=== PATIENT | female | born 1970 | race African-American/Black ===

== ENCOUNTER 2023-04-15 16:27 | Emergency (ER) | payer BC ==
[~2023-04-15] VITALS: Ht 149.9 cm; Wt 75.0 kg
[~2023-04-15 16:27] MED LIST: NORCO 325 MG-51 TAB PO
[2023-04-15 16:35] VITALS: TEMP 98.6
[2023-04-15] MEDS ORDERED: ULTRAM 50MG TAB50 MG PO (19:26)
[2023-04-15 19:40] VITALS: BP 122/65; PULSE 100
[2023-04-16] MEDS ORDERED: GLUCOPHAGE500 MG/TAB PO (03:15)
[2023-04-16] MEDS ORDERED: VYVANSE60 MG PO (03:15)
[2023-04-16] MEDS ORDERED: LUNESTA3 MG PO (03:15)
[2023-04-16] MEDS ORDERED: PROTONIX 40MG T40 MG PO (03:15)
[2023-04-16] MEDS ORDERED: LYRICA 75MG CAP75 MG PO (03:16)
[2023-04-16] MEDS ORDERED: REGLAN 10MG10 MG/TAB PO (03:39)
[2023-04-16] MEDS ORDERED: PEPCID 20MG TAB20 MG PO (03:40)
[2023-04-16] MEDS ORDERED: METROCREAM CREA45 GM TP (05:02)
[2023-04-16] MEDS ORDERED: TOPROL XL 25MG25 MG PO (11:59)
--- NOTE | 2023-04-16 15:31 | NUR ---
SW met with pt for intake. Pt reported living in [place] but visiting until New Year to help with grandchild. Pt reported NOK is son Vikash Tim [phone], Pt denied having DPOA and accepted paperwork to review. Pt reported PCP is in [place] and that is where she fills her medication. Pt reported living on 3rd floor and having difficulties at time but denied any DME use. Pt denied o2 use. Pt plans to d/c home with son.
== END 2023-04-15 19:41 | disposition home or self-care (01) ==
LOC: COL.ER 16:27
DX: M25.532 Pain in left wrist (principal); I16.0 Hypertensive urgency; M54.12 Radiculopathy, cervical region
CPT/HCPCS: J0360; J1200; J2765; J3010; J7030

== ENCOUNTER 2023-04-15 23:12 | Observation (INO) | payer BC ==
[~2023-04-15] VITALS: Ht 149.9 cm; Wt 86.6 kg
[~2023-04-15 23:12] MED LIST changes: +ULTRAM 50MG TAB50 MG PO
[2023-04-16 00:43] LABS: INR 0.9 (0.8-3.0); PROTHROMBIN TIME 10.2 SECONDS (9.7-12.8)
[2023-04-16 00:45] LABS: BASO # 0.1 K/mm3 (0.0-0.2); BASO % 0.4 % (0.0-2.0); EOS # 0.1 K/mm3 (0.0-0.7); EOS % 0.3 % (0.0-4.0); GRAN # 12.8 K/mm3 (1.4-6.5); GRAN % 71.8 % (42.2-75.2); HEMATOCRIT 39.8 % (37.0-47.0); LYMPH # 3.7 K/mm3 (1.2-3.4); LYMPH % 20.7 % (20.0-51.0); MEAN CELL VOLUME 76 fl (80.0-100.0); MEAN CORPUSCULAR HEMOGLOBIN 25 pg (27-31); MEAN CORPUSCULAR HGB CONC 33 g/dl (33.0-37.0); MEAN PLATELET VOLUME 10.1 fl (7.4-10.4); MONO % 5.4 % (1.7-9.3); PLATELET COUNT 297 K/mm3 (130-400); RED BLOOD COUNT 5.24 M/mm3 (4.10-5.30); REDCELL DISTRIBUTION WIDTH-CV 17.1 % (11.5-14.5)
[2023-04-16 00:46] LABS: PARTIAL THROMBOPLASTIN TIME 28.8 SECONDS (26.0-37.0)
[2023-04-16 00:46] LABS: COLLECTION METHOD CLEAN CATCH
[2023-04-16 00:58] LABS: ALBUMIN 3.7 gm/dL (3.5-5.0); BILIRUBIN,TOTAL 0.5 mg/dL (0.2-1.2); CREATININE, serum 0.95 mg/dL (0.57-1.11); POTASSIUM 3.5 mmol/L (3.5-4.5); TOTAL PROTEIN 7.3 gm/dL (6.2-8.1)
[2023-04-16 01:04] LABS: URINE APPEARANCE Clear (CLEAR/HAZY); URINE BLOOD Negative (NEGATIVE); URINE COLOR Yellow (YELLOW); URINE GLUCOSE Negative (NEGATIVE); URINE KETONE Negative (NEGATIVE); URINE NITRATE Negative (NEGATIVE); URINE PROTEIN(semi-quant) Negative (NEGATIVE); URINE UROBILINOGEN 0.2 E.U/dL (0.2-1.0)
[2023-04-16 01:04] LABS: TROPONIN-I 0.013 ng/mL (0.00-0.033)
[2023-04-16 01:07] LABS: SQUAMOUS EPITHELIAL 0-2 /hpf (0-10); URINE BACTERIA Rare /hpf (NONE SEEN); URINE CALCIUM OXALATE CRYSTAL Present (NOT PRESENT); URINE RBC None Seen /hpf (0-2)
[2023-04-16] MEDS ORDERED: PROTONIX 40MG T40 MG PO (03:15)
[2023-04-16] MEDS ORDERED: LUNESTA3 MG PO (03:15)
[2023-04-16] MEDS ORDERED: VYVANSE60 MG PO (03:15)
[2023-04-16] MEDS ORDERED: GLUCOPHAGE500 MG/TAB PO (03:15)
[2023-04-16] MEDS ORDERED: LYRICA 75MG CAP75 MG PO (03:16)
[2023-04-16] MEDS ORDERED: REGLAN 10MG10 MG/TAB PO (03:39)
[2023-04-16] MEDS ORDERED: PEPCID 20MG TAB20 MG PO (03:40)
[2023-04-16] MEDS ORDERED: METROCREAM CREA45 GM TP (05:02)
[2023-04-16 05:29] VITALS: BP 194/83; PULSE 110; TEMP 98.2
--- NOTE | 2023-04-16 07:00 | NUR ---
PT RESTING IN BED. PT IS ON RA. PT IS ST ON TELE. PT IS AXOX3. PT HAS IVF RUNNING. PT HAS CALL LIGHT AND IS INSTRUCTED TO CALL WITH ALL NEEDS. 0800-PTS BP ELEVATED AND COMPLAINS OF HEADACHE. PRN HYDRALAZINE AND TRAMADOL GIVEN.
[2023-04-16 07:20] VITALS: BP 181/91; PULSE 103; TEMP 98
--- NOTE | 2023-04-16 07:44 | NUR ---
Admission assessment completed- see docuemntation. Pt is alert and oriented. She denies pain or discomfort at this time. Pt oriented to the room and hospital policies. Providers orders initiated. LR currently running at 100 ml/hr. AM medications administered as ordered. Pt wears a CPAP at night when home. Respiratory therapy contacted and has set this up for pt. No other needs at this time. Call light left within reach.
[2023-04-16 09:14] VITALS: BP 174/74
--- NOTE | 2023-04-16 11:03 | NUR ---
D: Patient accepted Community Relations Coordinator visit when offered. Patient desires prayer. Patient is from [place]. She is here to help care for her Grandson as her Son is stationed at [employer]. A: Patient is feeling better today than yesterday; although still concerned about an infection. Patient is concerned for her family. P: Community Relations Coordinator prayed for Patient's family and for her healing. Community Relations Coordinator assisted Patient by informing her about the menu and how to call for changes; the TV schedule; and by providing a New Testament. Community Relations Coordinator relayed Patient's request for a toothbrush and toothpaste to the RN.
[2023-04-16 11:22] VITALS: BP 140/80; PULSE 99; TEMP 98.5
[2023-04-16] MEDS ORDERED: TOPROL XL 25MG25 MG PO (11:59)
--- NOTE | 2023-04-16 12:49 | NUR ---
1240-IV AND TELE DC'D. DISCHARGE INSTRUCTIONS DISCUSSED WITH PT. CLARIFIED WITH Kasie PINEDA ABOUT STOPPING LUNESTA. STATED DUE TO PTS SLEEP APNEA IT IS NOT RECCOMMENDED. PT EDUCATED. ALL QUESTIONS ANSWERED. PT GETTING DRESSED FOR DISCHARGE. 1250-PT WHEELED OUT FOR DISCHARGE. ACCOMPAINED BY FAMILY.
== END 2023-04-16 12:52 | disposition home or self-care (01) ==
LOC: COL.ER 23:12 → MEDICAL 04-16 03:21
PROVIDERS: Emergency Medicine; ADMIT Internal Medicine
DX: I16.0 Hypertensive urgency (principal); R65.10 Systemic inflammatory response syndrome (SIRS) of non-infectious origin without acute organ dysfunction; E11.69 Type 2 diabetes mellitus with other specified complication; G47.33 Obstructive sleep apnea (adult) (pediatric); Z87.442 Personal history of urinary calculi; M25.432 Effusion, left wrist; M25.532 Pain in left wrist; Z79.84 Long term (current) use of oral hypoglycemic drugs
CPT/HCPCS: G0378; J0360; J0780; J1200; J2543; J3370; J7040; J7050; J7120; Q9967

== ENCOUNTER 2023-05-17 23:41 | Emergency (ER) | payer SELFPAY ==
[~2023-05-17] VITALS: Ht 149.9 cm; Wt 72.7 kg
[~2023-05-17 23:41] MED LIST changes: +GLUCOPHAGE500 MG/TAB PO; +LUNESTA3 MG PO; +LYRICA 75MG CAP75 MG PO; +METROCREAM CREA45 GM TP; +PEPCID 20MG TAB20 MG PO; +PROTONIX 40MG T40 MG PO; +REGLAN 10MG10 MG/TAB PO; +TOPROL XL 25MG25 MG PO; +VYVANSE60 MG PO
[2023-05-17 23:48] VITALS: TEMP 99.3
[2023-05-18 00:27] LABS: BASO % 0.3 % (0.0-2.0); EOS # 0.2 K/mm3 (0.0-0.7); EOS % 1.1 % (0.0-4.0); GRAN # 8.5 K/mm3 (1.4-6.5); GRAN % 60.1 % (42.2-75.2); HEMATOCRIT 43.5 % (37.0-47.0); HEMOGLOBIN 14.9 g/dl (12.5-16.0); LYMPH # 4.7 K/mm3 (1.2-3.4); LYMPH % 32.9 % (20.0-51.0); MEAN CELL VOLUME 74 fl (80.0-100.0); MEAN CORPUSCULAR HEMOGLOBIN 25 pg (27-31); MEAN CORPUSCULAR HGB CONC 34 g/dl (33.0-37.0); MEAN PLATELET VOLUME 9.8 fl (7.4-10.4); MONO # 0.7 K/mm3 (0.1-0.6); PLATELET COUNT 312 K/mm3 (130-400); RED BLOOD COUNT 5.89 M/mm3 (4.10-5.30); REDCELL DISTRIBUTION WIDTH-CV 16.6 % (11.5-14.5)
[2023-05-18 00:31] LABS: PROTHROMBIN TIME 11.2 SECONDS (9.7-12.8)
[2023-05-18 00:34] LABS: PARTIAL THROMBOPLASTIN TIME 31.5 SECONDS (26.0-37.0)
[2023-05-18 00:58] LABS: ALANINE AMINOTRANSFERASE 31 U/L (0-55); ALKALINE PHOSPHATASE 69 U/L (40-150); ANION GAP 15 mmol/L (7-16); AST,SGOT 20 U/L (5-34); BLOOD UREA NITROGEN 17 mg/dL (10-20); CALCIUM 10.6 mg/dL (8.4-10.2); CARBON DIOXIDE 20 mmol/L (22-29); CHLORIDE 106 mmol/L (98-107); CREATININE, serum 1.09 mg/dL (0.57-1.11); GLUCOSE 126 mg/dL (70-99); POTASSIUM 3.6 mmol/L (3.5-4.5); SODIUM 141 mmol/L (136-145); TOTAL PROTEIN 7.8 gm/dL (6.2-8.1)
[2023-05-18 01:06] LABS: TROPONIN-I < 0.010 ng/mL (0.00-0.033)
[2023-05-18 01:17] LABS: BILIRUBIN,TOTAL 0.4 mg/dL (0.2-1.2)
[2023-05-18 02:48] LABS: COLLECTION METHOD CLEAN CATCH
[2023-05-18 03:00] VITALS: O2SAT 97
[2023-05-18 03:00] LABS: MUCOUS Present (NOT PRESENT); PH 5.5 (5.0-8.5); SQUAMOUS EPITHELIAL 0-2 /hpf (0-10); URINE APPEARANCE Clear (CLEAR/HAZY); URINE BACTERIA Rare /hpf (NONE SEEN); URINE BLOOD Negative (NEGATIVE); URINE COLOR Yellow (YELLOW); URINE GLUCOSE Negative (NEGATIVE); URINE KETONE Negative (NEGATIVE); URINE NITRATE Negative (NEGATIVE); URINE PROTEIN(semi-quant) Negative (NEGATIVE); URINE RBC 0-2 /hpf (0-2); URINE UROBILINOGEN 0.2 E.U/dL (0.2-1.0)
[2023-05-18 04:33] VITALS: BP 152/105; PULSE 84
== END 2023-05-18 04:44 | disposition home or self-care (01) ==
LOC: COL.ER 23:41
PROVIDERS: Emergency Medicine
DX: U07.1 COVID-19 (principal); R53.1 Weakness; R09.81 Nasal congestion; R07.2 Precordial pain
CPT/HCPCS: J1885; J7030

== ENCOUNTER 2024-01-24 18:02 | Emergency (ER) | payer OTHER ==
[~2024-01-24] VITALS: Ht 149.9 cm; Wt 70.0 kg
[2024-01-24 18:12] VITALS: TEMP 97.1
[2024-01-24] MEDS ORDERED: Ondansetron 4 MG/2 ML VIAL IV ONE (18:15)
[2024-01-24 21:35] LABS: BASO # 0.1 K/mm3 (0.0-0.2); BASO % 0.3 % (0.0-2.0); EOS % 0.2 % (0.0-4.0); GRAN % 78.5 % (42.2-75.2); HEMATOCRIT 42.1 % (37.0-47.0); HEMOGLOBIN 14.3 g/dl (12.5-16.0); LYMPH # 2.7 K/mm3 (1.2-3.4); LYMPH % 16.3 % (20.0-51.0); MEAN CELL VOLUME 72 fl (80.0-100.0); MEAN CORPUSCULAR HEMOGLOBIN 24 pg (27-31); MEAN CORPUSCULAR HGB CONC 34 g/dl (33.0-37.0); MONO # 0.7 K/mm3 (0.1-0.6); MONO % 4.3 % (1.7-9.3); PLATELET COUNT 310 K/mm3 (130-400); RED BLOOD COUNT 5.86 M/mm3 (4.10-5.30); REDCELL DISTRIBUTION WIDTH-CV 15.8 % (11.5-14.5)
[2024-01-24 21:51] LABS: PARTIAL THROMBOPLASTIN TIME 33.9 SECONDS (26.0-37.0)
[2024-01-24 22:14] LABS: ALANINE AMINOTRANSFERASE 26 U/L (0-55); ALBUMIN 3.9 g/dL (3.5-5.0); ALKALINE PHOSPHATASE 83 U/L (40-150); ANION GAP 13 mmol/L (7-16); AST,SGOT 18 U/L (5-34); BILIRUBIN,TOTAL 0.8 mg/dL (0.2-1.2); BLOOD UREA NITROGEN 11 mg/dL (10-20); CALCIUM 9.9 mg/dL (8.4-10.2); CHLORIDE 105 mEq/L (98-107); GLUCOSE 104 mg/dL (70-99); LIPASE 34 U/L (8-78); POTASSIUM 3.8 mEq/L (3.5-4.5); SODIUM 139 mEq/L (136-145); TOTAL PROTEIN 7.8 g/dl (6.2-8.1)
[2024-01-24 22:22] LABS: TROPONIN-I < 0.010 ng/mL (0.00-0.033)
[2024-01-25 00:01] VITALS: BP 116/67; PULSE 93
== END 2024-01-25 00:01 | disposition home or self-care (01) ==
LOC: COL.ER → EDBD 18:03 → COL.ER 01-25 00:01
PROVIDERS: Emergency Medicine
DX: K60.2 Anal fissure, unspecified (principal); K59.00 Constipation, unspecified